=== PATIENT | female | born 1975 | race Two or more races ===

== ENCOUNTER 2019-08-30 05:57 | Day surgery (SDC) | payer OTHER ==
[~2019-08-30 05:57] MED LIST: SYNTHROID125 MCG; TYLENOL-CODEINE1 TAB PO
[2019-08-30] MEDS ORDERED: Tylenol #3 PO (08:51)
[2019-08-30] MEDS ORDERED: MORGIDOX100 MG PO (08:51)
== END 2019-08-30 12:50 | disposition home or self-care (01) ==
LOC: CIR.AMB 05:57 → ADM 11:45 → CIR.AMB 11:45
PROVIDERS: ATTEND Obstetrics & Gynecology
DX: D25.0 Submucous leiomyoma of uterus (principal); N84.0 Polyp of corpus uteri; Z20.828 Contact with and (suspected) exposure to other viral communicable diseases

== ENCOUNTER 2022-12-23 06:46 | Day surgery (SDC) | payer OTHER ==
[~2022-12-23 06:46] MED LIST changes: +MORGIDOX100 MG PO; +SYNTHROID150 MCG PO; +Tylenol #3 PO
[2022-12-23] MEDS ORDERED: Tylenol #3 PO (12:29)
[2022-12-23] MEDS ORDERED: NAPR500T14 PO (12:29)
== END 2022-12-23 15:10 | disposition home or self-care (01) ==
LOC: CIR.AMB 06:46
PROVIDERS: ATTEND Obstetrics & Gynecology
DX: N83.291 Other ovarian cyst, right side (principal); Z20.822 Contact with and (suspected) exposure to COVID-19; E03.9 Hypothyroidism, unspecified; Z88.6 Allergy status to analgesic agent

== ENCOUNTER 2023-03-30 10:00 | Inpatient (IN) | payer OTHER ==
[~2023-03-30] VITALS: Ht 162.6 cm; Wt 80.7 kg
[~2023-03-30 10:00] MED LIST changes: +NAPR500T14 PO
[2023-04-07] MEDS ORDERED: POVIDONE-IODINE 118 ML BOTT TOP ONE ×2 (10:33→12:15)
[2023-04-07] MEDS ORDERED: CEFOXITIN SODIUM 2,000 MG VIAL IV ONE ×2 (10:33→12:15)
[2023-04-07] MEDS ORDERED: LIDOCAINE HCL 1%/Epi 20ML VIAL IJ ONE (10:52)
[2023-04-07] MEDS ORDERED: BUPIVACAINE HCL/PF 0.5% 30ML ML ONE (10:52)
[2023-04-07] MEDS ORDERED: MEPERIDINE HCL/PF 50 MG/ML VIAL IV SCH (13:49)
[2023-04-07] MEDS ORDERED: SIMETHICONE 125 MG CAPSULE PO SCH (13:49)
[2023-04-07] MEDS ORDERED: PROMETHAZINE HCL 50 MG/ML AMPUL IV SCH (13:49)
[2023-04-07] MEDS ORDERED: RINGERS SOLUTION,LACTATED 1,000 ML IV SCH (14:00)
[2023-04-07] MEDS ORDERED: PROMETHAZINE HCL 50 MG/ML AMPUL ONE (15:56)
[2023-04-07 16:20] LABS: HEMATOCRIT 38.6 % (36.0-45.00); HEMOGLOBIN 13.4 g/dL (12.0-15.00); MEAN CELL VOLUME 83.7 fL (80.00-100.00); MEAN CORPUSCULAR HGB CONC 34.7 g/dl (32.0-36.0); PLATELET COUNT 247 K/uL (150-450); RED BLOOD COUNT 4.61 M/uL (4.00-6.00); RED CELL DISTRIBUTION WIDTH 12.4 % (11.5-14.5)
[2023-04-07] MEDS ORDERED: hydrOXYzine PAMOATE 50 MG CAPSULE PO PRN (23:30)
[2023-04-08] MEDS ORDERED: LEVOTHYROXINE SODIUM 150 MCG TABLET PO SCH (06:00)
[2023-04-08] MEDS ORDERED: Tylenol #3 PO (09:07)
[2023-04-08] MEDS ORDERED: NAPR500T14 PO (09:07)
[2023-04-08] MEDS ORDERED: ACETAMINOPHEN WITH CODEINE 1 UDTAB TABLET PO PRN (09:30)
== END 2023-04-08 11:40 | disposition home or self-care (01) | DRG 743 ==
LOC: O/R 04-07 09:14 → SURH 04-07 10:00 → OB/GYN 04-07 14:13
PROVIDERS: ADMIT Obstetrics & Gynecology; ATTEND Obstetrics & Gynecology
PROC: 0UT7FZZ Resection of Bilateral Fallopian Tubes, Via Natural or Artificial Opening With Percutaneous Endoscopic Assistance (ICD-10-PCS; 2023-04-07)
PROC: 0UT2FZZ Resection of Bilateral Ovaries, Via Natural or Artificial Opening With Percutaneous Endoscopic Assistance (ICD-10-PCS; 2023-04-07)
PROC: 0JQC0ZZ Repair Pelvic Region Subcutaneous Tissue and Fascia, Open Approach (ICD-10-PCS; 2023-04-07)
PROC: 0USG4ZZ Reposition Vagina, Percutaneous Endoscopic Approach (ICD-10-PCS; 2023-04-07)
PROC: 0TJB8ZZ Inspection of Bladder, Via Natural or Artificial Opening Endoscopic (ICD-10-PCS; 2023-04-07)
PROC: 0UT9FZZ Resection of Uterus, Via Natural or Artificial Opening With Percutaneous Endoscopic Assistance (ICD-10-PCS; principal; 2023-04-07 10:30)
DX: D25.1 Intramural leiomyoma of uterus (principal); N80.03 Adenomyosis of the uterus; N72 Inflammatory disease of cervix uteri; N83.12 Corpus luteum cyst of left ovary; N92.5 Other specified irregular menstruation; N81.11 Cystocele, midline; Z20.822 Contact with and (suspected) exposure to COVID-19